=== PATIENT | male | born 1990 | race Caucasian/White ===

== ENCOUNTER 2018-08-17 20:34 | Emergency (ER) | payer SELFPAY ==
[~2018-08-17] VITALS: Ht 180.3 cm; Wt 66.8 kg
[2018-08-17 20:40] VITALS: BP 156/89
[2018-08-17] MEDS ORDERED: DIPHENHYDRAMINE 25 MG CAPSULE ONE (20:57)
[2018-08-17] MEDS ORDERED: FAMOTIDINE 20 MG TABLET ONE (20:58)
[2018-08-17] MEDS ORDERED: FAMOTIDINE 20 MG TABLET PO ONE (21:00)
[2018-08-17] MEDS ORDERED: DIPHENHYDRAMINE 25 MG CAPSULE PO ONE (21:00)
== END 2018-08-17 21:15 | disposition home or self-care (01) ==
LOC: ED 21:09
DX: L50.9 Urticaria, unspecified (principal); Z90.89 Acquired absence of other organs
CPT/HCPCS: 99284; J7512; Q0163

== ENCOUNTER 2019-08-21 20:23 | Emergency (ER) | payer MEDICAID ==
[~2019-08-21] VITALS: Ht 180.3 cm; Wt 66.0 kg
[2019-08-21 20:25] VITALS: BP 147/93
[2019-08-21] MEDS ORDERED: LIDOCAINE-MPF 1%, 5ML INFIL ONE (21:00)
[2019-08-21] MEDS ORDERED: DIPH,PERTUSS(ACELL),TET VAC/PF 0.5 ML IM-VACC ONE ×2 (21:00→21:06)
[2019-08-21] MEDS ORDERED: LIDOCAINE-MPF 1%, 5ML ONE (21:03)
== END 2019-08-21 21:38 | disposition home or self-care (01) ==
LOC: ED 21:30
DX: S61.411A Laceration without foreign body of right hand, initial encounter (principal); F17.210 Nicotine dependence, cigarettes, uncomplicated; X58.XXXA Exposure to other specified factors, initial encounter; Y93.89 Activity, other specified; Y92.89 Other specified places as the place of occurrence of the external cause; Y99.8 Other external cause status
CPT/HCPCS: 12041; 90471; 90715; 99284